=== PATIENT | male | born 1970 | race Caucasian/White ===

== ENCOUNTER 2017-03-26 22:35 | Emergency (ER) | payer OTHER ==
[2017-03-26 22:48] VITALS: BP 185/119
--- NOTE | 2017-03-27 00:32 | EDM.PDOC ---
ED HPI GENERAL MEDICAL PROBLEM - General Chief Complaint: Eye Problems Stated Complaint: POSS EYE INFECTION Time Seen by Provider: 03/26/17 23:35 Source of Information: Reports: Patient, RN Notes Reviewed History Limitations: Reports: No Limitations - History of Present Illness INITIAL COMMENTS - FREE TEXT/NARRATIVE: The patient states that he developed right eye pain and swelling around noon today. The eye is pruritic. It has been tearing, and he has photophobia in that eye. He denies blurry vision. He does not recall any injury, although he does have a foreign body sensation. He also reports a headache that developed around 15:00 this afternoon. No prior right eye symptoms, although he did have similar symptoms in his left eye, but did not seek medical evaluation. The patient does not have a PCP, and states that he has never had a general physical exam. Right Eye Pain Score (Numeric/FACES): 6 - Related Data Allergies Allergy/AdvReac Type Severity Reaction Status Date / Time aspirin Allergy Swelling Verified 03/26/17 22:46 Home Meds: Home Meds Ketorolac [Acular 0.5% Ophth Soln] 1 drop EYERT Q6H PRN #1 bottle 03/27/17 [Rx] Tobramycin [Tobrex] 1 - 2 drop EYERT Q4H #1 bottle 03/27/17 [Rx] Past Medical History - Past Surgical History GI Surgical History: Reports: Appendectomy Social & Family History - Tobacco Use Smoking Status *Q: Never Smoker - Alcohol Use Alcohol Use History: Yes Days Per Week of Alcohol Use: 2 Number of Drinks Per Day: 2 Total Drinks Per Week: 4 Alcohol Use Frequency: Socially - Recreational Drug Use Recreational Drug Use: No - Living Situation & Occupation Living situation: Reports: , with Spouse, with Family (3 kids) 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) ED ROS GENERAL - Review of Systems Review Of Systems: See Below Constitutional: Reports: No Symptoms HEENT: Reports: No Symptoms Respiratory: Reports: No Symptoms Cardiovascular: Reports: No Symptoms Endocrine: Reports: No Symptoms GI/Abdominal: Reports: No Symptoms : Reports: No Symptoms Musculoskeletal: Reports: No Symptoms Skin: Reports: No Symptoms Neurological: Reports: No Symptoms Psychiatric: Reports: No Symptoms Hematologic/Lymphatic: Reports: No Symptoms Immunologic: Reports: No Symptoms ED EXAM GENERAL W FULL EYE - Physical Exam Exam: See Below Exam Limited By: No Limitations General Appearance: Alert, WD/WN, Mild Distress Eye Exam: Right Eye: Conjunctival Injection, EOMI, PERRL, Left Eye: Normal Inspection Eyelids: Right: Edema, Lid Everted for Exam, Left: Normal Appearance Conjunctiva & Sclera: Right: Injected Cornea Exam: Right: Foreign Body (5:00 position), Examined with Flourescein Extraocular Movements: Bilateral: Intact Pupils: Normal Accommodation Pupillary Size: Bilateral: 5 mm Pupillary Reaction: Bilateral: Brisk Anterior Chamber: Bilateral: Normal Appearance Course - Vital Signs Last Recorded V/S: Last Vital Signs Temp 36.6 C 03/26/17 22:46 Pulse 86 03/26/17 22:46 Resp 18 03/26/17 22:46 BP 185/119 H 03/26/17 22:46 Pulse Ox 98 03/26/17 22:46 - Re-Assessments/Exams Free Text/Narrative Re-Assessment/Exam: 03/27/17 00:27 The patient has a small corneal injury at about the 5 o'clock position to his right eye, seen with the slit lamp only - it is too small to see with the naked eye. I do not see a foreign body within the injury, and I did not recover any foreign bodies with a cotton swab to the injury. Nevertheless, I would like the patient to follow-up with an tank setter or presentation specialist tomorrow for reevaluation. In the meantime, I will e-prescribe both Acular and Tobrex that the patient can fill tomorrow morning. Departure - Departure Time of Disposition: 00:31 Disposition: Home, Self-Care 01 Condition: Good Clinical Impression: Corneal injury of right eye - Discharge Information Prescriptions: Ketorolac [Acular 0.5% Ophth Soln] 1 drop EYERT Q6H PRN #1 bottle PRN Reason: Pain Tobramycin [Tobrex] 1 - 2 drop EYERT Q4H #1 bottle Instructions: Corneal Abrasion, [id number] Referrals: PCP,None [Primary Care Provider] - Forms: ED Department Discharge Additional Instructions: You were seen in the emergency room for right eye pain and swelling. On evaluation, you have a corneal injury at about the 5 o'clock position of your right cornea. Instill 1 drop of the pain medicine Acular in your right eye every 6 hours, as prescribed. Instill 1-2 drops of the antibiotic Tobrex into your right eye every 4 hours, as prescribed. Follow-up with the Wharf Tender Helper Declan Jackson at [facility] at the next available appointment [address] [place] If any other problems, please do not hesitate to return to the ER.
== END 2017-03-27 00:48 | disposition home or self-care (01) ==
LOC: JD.ED 22:35
DX: S05.8X1A Other injuries of right eye and orbit, initial encounter (principal); X58.XXXA Exposure to other specified factors, initial encounter
CPT/HCPCS: 99283